=== PATIENT | female | born 1995 | race Caucasian/White ===

== ENCOUNTER 2016-12-27 19:19 | Emergency (ER) | payer OTHER ==
[2016-12-27] MEDS ORDERED: NS 1,000 ML IV ONE ×2 (19:36)
--- NOTE | 2016-12-27 19:36 | EDPHY ---
H & P Stated Complaint: abd pain, N, low back pain Time Seen by Provider: 12/27/16 19:35 HPI/ROS: HPI: This is a 21-year-old female who presents with Chief Complaint: abd pain, N, low back pain Location: Right lower quadrant Quality: Aching pain Duration: 3 days Signs and Symptoms: + low-grade subjective fever, + nausea, no vomiting, no hematemesis, no blood in stool, no abdominal bloating, + diarrhea 1-2 times per day x 2 days, + lower back pain, no urinary symptoms, no indigestion, no chest pain, no shortness of breath Timing: Gradually worsening Severity: 05/14 Context: Patient presents from [facility] for concerns of appendicitis. She reports that she is having right lower quadrant pain over the last 3 days that is dull aching mild in nature and nonradiating accompanied by nausea. She has not eaten in over 24 hours. She has also noted 1-2 loose stools per day for the last 2 days. She has a history of polycystic ovary syndrome but reports this pain feels different. Last menstrual period was 3 weeks ago. She denies any vaginal bleeding/vaginal discharge. Last sexual intercourse was yesterday. Modifying Factors: Has not tried anything for the pain Comment: ROS: see HPI Constitutional: No fever, no chills, no weight loss Eyes: No blurred vision Respiratory: No shortness of breath, no cough Cardiovascular: No chest pain, no palpitations Gastrointestinal: + nausea, no vomiting, + diarrhea, no hematemesis, no blood in stool Genitourinary: No dysuria, no blood in urine Extremities: No myalgias, no edema Neurologic: No weakness, no numbness Skin: No rashes, no petechiae Hematologic: No bruising, no bleeding MEDICAL/SURGICAL/SOCIAL HISTORY: Medical history: Generally healthy. Does not take any regular medications. Surgical history: Denies Social history: Chemistry PhD. CONSTITUTIONAL: Obese white female, awake and alert, no obvious distress HEENT: Atraumatic and normocephalic, PERRL, EOMI. Tympanic membranes clear. Oropharynx clear, no exudate and moist pink mucosa. Airway patent. No lymphadenopathy. No meningismus. Cardiovascular: Normal S1/S2, tachycardia, regular rhythm, without murmur rub or gallop. PULMONARY/CHEST: Symmetrical and nontender. Clear to auscultation bilaterally. Good air movement. No accessory muscle usage. ABDOMEN: Soft, nondistended, right lower quadrant moderate tenderness, + rebound tenderness, + rovsings sign, no Psoas sign, + obturator sign, no rebound , no guarding, no peritoneal signs, no masses or organomegaly. No CVAT. EXTREMITIES: 2/2 pulses, no deformities, no clubbing, no cyanosis or edema. NEUROLOGICAL: no focal neuro deficits. GCS 15. SKIN: Warm and dry, no erythema. no rash. Good capillary refill. Source: Patient Exam Limitations: No limitations - Personal History LMP (Females 10-55): 15-21 Days Ago Current Tetanus/Diphtheria Vaccine: Unsure - Medical/Surgical History Hx Asthma: No Hx Chronic Respiratory Disease: No Hx Diabetes: No Hx Cardiac Disease: No Hx Renal Disease: No Hx Cirrhosis: No Hx Alcoholism: No Hx HIV/AIDS: No Hx Splenectomy or Spleen Trauma: No Other PMH: PMHx: hypothyroid, PCOS, vit B 12 adn Vit D deficiency. PSHx: R hand , bilat bunionectomy, mole removed back L shoulder and L axilla, tonsillectomy - Social History Smoking Status: Never smoked Constitutional: Initial Vital Signs Temperature (C) 37.6 C 12/27/16 19:25 Heart Rate 108 H 12/27/16 19:25 Respiratory Rate 14 12/27/16 19:25 Blood Pressure 137/85 H 12/27/16 19:25 O2 Sat (%) 98 12/27/16 19:25 O2 Delivery Mode Room Air Allergies/Adverse Reactions: No Known Allergies Allergy (Unverified 12/27/16 19:23) Home Medications: Medication Instructions Recorded Dicyclomine 12/27/16 FLUoxetine 12/27/16 Metformin HCl 12/27/16 Ondansetron 12/27/16 Sprintec 28 Day Tablet 12/27/16 Synthroid 12/27/16 Medical Decision Making - Diagnostics Imaging Results: Imaging Impressions Abdomen CT 12/27/16 19:46 Impression: 1. Negative for appendicitis. 2. Diffuse fatty infiltration of the liver. I telephoned results to Dalia Brewster at 2117 hours. ED Course/Re-evaluation: Urinalysis, labs, CT abdomen and pelvis scan, IV fluids, IV medications ordered De Anda score equals 6 2040: Labs reviewed and show mild leukocytosis; ESR and CRP within normal limits. 2120: Called by radiologist who advised CT abdomen and pelvis scan shows no signs of appendicitis/ruptured ovarian cyst/colitis/fibroid uterus/cholecystitis /pancreatitis/obstruction. Urinalysis shows 1+ ketones and trace LE. No flor signs of infection. Patient has an appointment in less than 2 weeks with OBGYN for pelvic exam and Pap smear. Patient has politely refused pelvic exam in the ER. 1025: Reassessed patient; abdomen is soft/nontender. No episodes of diarrhea to obtain stool studies while in the ER or episodes of emesis. Patient passed p.o. trial prior to discharge. Patient politely declined prescription for Zofran as she already has one at home. Differential Diagnosis: Abdominal pain in a female including but not limited to ovarian cyst, pelvic inflammatory disease, ovarian torsion, urinary tract infection, and appendicitis. - Data Points Laboratory Results: Laboratory Results 12/27/16 19:50 12/27/16 19:50 12/27/16 12/27/16 12/27/16 21:40 19:50 19:50 WBC RBC Hgb Hct MCV MCH MCHC RDW Plt Count MPV Neut % (Auto) Lymph % (Auto) [place] % (Auto) Eos % (Auto) Baso % (Auto) Nucleat RBC Rel Count Absolute Neuts (auto) Absolute Lymphs (auto) Absolute Monos (auto) Absolute Eos (auto) Absolute Basos (auto) Absolute Nucleated RBC Immature Gran % Immature Gran # ESR Sodium 136 mEq/L mEq/L (134-144) Potassium 4.4 mEq/L mEq/L (3.5-5.2) Chloride 103 mEq/L mEq/L (97-110) Carbon Dioxide 17 mEq/l L mEq/l (22-31) Anion Gap 16 mEq/L mEq/L (8-16) BUN 13 mg/dL mg/dL (7-23) Creatinine 0.7 mg/dL mg/dL (0.6-1.0) Estimated GFR > 60 Glucose 76 mg/dL mg/dL (70-100) Calcium 9.6 mg/dL mg/dL (8.5-10.4) Total Bilirubin 0.7 mg/dL mg/dL (0.1-1.4) Conjugated Bilirubin 0.5 mg/dL mg/dL (0.0-0.5) Unconjugated Bilirubin 0.2 mg/dL mg/dL (0.0-1.1) AST 42 IU/L IU/L (14-46) ALT 32 IU/L IU/L (9-52) Alkaline Phosphatase 70 IU/L IU/L (38-126) C-Reactive Protein 6.5 mg/L mg/L (<10.0) Total Protein 7.6 g/dL g/dL (6.3-8.2) Albumin 4.5 g/dL g/dL (3.5-5.0) Lipase 87 IU/L IU/L (23-300) Beta HCG, Qual NEGATIVE Specimen Hemolysis 110 Urine Color COLORLESS Urine Appearance CLEAR Urine pH 5.0 (5.0-7.5) Ur Specific [place] 1.033 H (1.002-1.030) Urine Protein NEGATIVE (NEGATIVE) Urine Ketones 1+ H (NEGATIVE) Urine Blood NEGATIVE (NEGATIVE) Urine Nitrate NEGATIVE (NEGATIVE) Urine Bilirubin NEGATIVE (NEGATIVE) Urine Urobilinogen NEGATIVE EU EU (0.2-1.0) Ur Leukocyte Esterase TRACE H (NEGATIVE) Urine RBC 1-3 /hpf /hpf (0-3) Urine WBC 1-3 /hpf /hpf (0-3) Ur Epithelial Cells TRACE /lpf /lpf (NONE-1+) Urine Mucus TRACE /lpf /lpf (NONE-1+) Urine Glucose NEGATIVE (NEGATIVE) 12/27/16 19:50 WBC 10.25 10^3/uL H 10^3/uL (3.80-9.50) RBC 4.52 10^6/uL 10^6/uL (4.18-5.33) Hgb 13.7 g/dL g/dL (12.6-16.3) Hct 38.8 % % (38.0-47.0) MCV 85.8 fL fL (81.5-99.8) MCH 30.3 pg pg (27.9-34.1) MCHC 35.3 g/dL g/dL (32.4-36.7) RDW 12.3 % % (11.5-15.2) Plt Count 304 10^3/uL 10^3/uL (150-400) MPV 10.4 fL fL (8.7-11.7) Neut % (Auto) 54.4 % % (39.3-74.2) Lymph % (Auto) 38.7 % % (15.0-45.0) Dodge % (Auto) 5.6 % % (4.5-13.0) Eos % (Auto) 0.4 % L % (0.6-7.6) Baso % (Auto) 0.6 % % (0.3-1.7) Nucleat RBC Rel Count 0.0 % % (0.0-0.2) Absolute Neuts (auto) 5.58 10^3/uL 10^3/uL (1.70-6.50) Absolute Lymphs (auto) 3.97 10^3/uL H 10^3/uL (1.00-3.00) Absolute Monos (auto) 0.57 10^3/uL 10^3/uL (0.30-0.80) Absolute Eos (auto) 0.04 10^3/uL 10^3/uL (0.03-0.40) Absolute Basos (auto) 0.06 10^3/uL 10^3/uL (0.02-0.10) Absolute Nucleated RBC 0.00 10^3/uL 10^3/uL (0-0.01) Immature Gran % 0.3 % % (0.0-1.1) Immature Gran # 0.03 10^3/uL 10^3/uL (0.00-0.10) ESR 11 MM/HR MM/HR (0-20) Sodium Potassium Chloride Carbon Dioxide Anion Gap BUN Creatinine Estimated GFR Glucose Calcium Total Bilirubin Conjugated Bilirubin Unconjugated Bilirubin AST ALT Alkaline Phosphatase C-Reactive Protein Total Protein Albumin Lipase Beta HCG, Qual Specimen Hemolysis Urine Color Urine Appearance Urine pH Ur Specific [place] Urine Protein Urine Ketones Urine Blood Urine Nitrate Urine Bilirubin Urine Urobilinogen Ur Leukocyte Esterase Urine RBC Urine WBC Ur Epithelial Cells Urine Mucus Urine Glucose Medications Given: Discontinued Medications Sodium Chloride (Ns) 1,000 mls @ 0 mls/hr IV EDNOW ONE; Wide Open PRN Reason: Protocol Stop: 12/27/16 19:37 Last Admin: 12/27/16 20:08 Dose: 1,000 mls Sodium Chloride (Ns) 1,000 mls @ 0 mls/hr IV EDNOW ONE; Wide Open PRN Reason: Protocol Stop: 12/27/16 19:37 Last Admin: 12/27/16 21:08 Dose: 1,000 mls Ondansetron HCl (Zofran) 4 mg IVP EDNOW ONE Stop: 12/27/16 19:47 Last Admin: 12/27/16 20:09 Dose: 4 mg Departure - Departure Disposition: Home, Routine, Self-Care Clinical Impression: Gastroenteritis Condition: Good Instructions: Gastroenteritis (ED) Additional Instructions: Drink plenty of fluids and rest until symptoms resolve. Use Zofran as needed every 4-6 hours for nausea and vomiting. Eat a bland diet for the next 48 hours. Please keep follow-up appointment with OBGYN for pelvic exam and Pap smear. Referrals: ELISA Reis,. [Clinic] - As per Instructions (Keep follow-up appointment as previously scheduled. )
[2016-12-27] MEDS ORDERED: ONDANSETRON 4 MG/2 ML VIAL IVP ONE (19:46)
[2016-12-27 20:08] LABS: % IMMATURE GRANULYOCYTES 0.3 % (0.0-1.1); ABSOLUTE IMMATURE GRANULOCYTES 0.03 10^3/uL (0.00-0.10); ADD DIFF? NO; ADD MORPH? NO; ADD SCAN? NO; ATYPICAL LYMPHOCYTE FLAG 10 (0-99); FRAGMENT RBC FLAG 0 (0-99); HEMATOCRIT 38.8 % (38.0-47.0); HEMOGLOBIN 13.7 g/dL (12.6-16.3); LEFT SHIFT FLG 0 (0-99); LIPEMIA HEMOLYSIS FLAG 90 (0-99); MEAN CELL HEMOGLOBIN 30.3 pg (27.9-34.1); MEAN CELL HEMOGLOBIN CONCENTR. 35.3 g/dL (32.4-36.7); MEAN CELL VOLUME 85.8 fL (81.5-99.8); MEAN PLATELET VOLUME 10.4 fL (8.7-11.7); PLATELET CLUMPS FLAG 50 (0-99); PLATELET COUNT 304 10^3/uL (150-400); RED BLOOD CELL COUNT 4.52 10^6/uL (4.18-5.33); RED CELL DISTRIBUTION WIDTH 12.3 % (11.5-15.2)
[2016-12-27 20:21] LABS: ALANINE AMINOTRANSFERASE 32 IU/L (9-52); ALBUMIN 4.5 g/dL (3.5-5.0); ALKALINE PHOSPHATASE 70 IU/L (38-126); ANION GAP 16 mEq/L (8-16); ASPARTATE AMINOTRANSFERASE 42 IU/L (14-46); BILIRUBIN,TOTAL 0.7 mg/dL (0.1-1.4); BILIRUBIN-CONJUGATED 0.5 mg/dL (0.0-0.5); BILIRUBIN-UNCONJUGATED 0.2 mg/dL (0.0-1.1); CALCIUM 9.6 mg/dL (8.5-10.4); CARBON DIOXIDE 17 mEq/l (22-31); CHLORIDE 103 mEq/L (97-110); CREATININE 0.7 mg/dL (0.6-1.0); GLOMERULAR FILTRATION RATE > 60; GLUCOSE 76 mg/dL (70-100); POTASSIUM 4.4 mEq/L (3.5-5.2); SODIUM 136 mEq/L (134-144); TOTAL PROTEIN 7.6 g/dL (6.3-8.2)
[2016-12-27 20:36] LABS: SEDIMENTATION RATE 11 MM/HR (0-20)
[2016-12-27 20:39] LABS: C-REACTIVE PROTEIN 6.5 mg/L (<10.0); SPECIMEN HEMOLYSIS 110
[2016-12-27] MEDS ORDERED: IOPAMIDOL (ISOVUE-300) 100 ML BTL ONE (20:43)
[2016-12-27 21:50] LABS: COLOR COLORLESS; LEUKOCYTE ESTERASE,URINE TRACE (NEGATIVE); NITRITE,URINE NEGATIVE (NEGATIVE)
[2016-12-27 21:55] LABS: MUCUS TRACE /lpf (NONE-1+)
[2016-12-27 22:38] VITALS: BP 121/68; PULSE 86; RESP 20; TEMP 98.4; O2SAT 96
== END 2016-12-27 22:38 | disposition home or self-care (01) ==
PROC: 3E0337Z Introduction of Electrolytic and Water Balance Substance into Peripheral Vein, Percutaneous Approach (ICD-10-PCS; principal; 2016-12-27)
DX: K52.9 Noninfective gastroenteritis and colitis, unspecified (principal); E86.9 Volume depletion, unspecified
CPT/HCPCS: 96374; J2405; Q9967

== ENCOUNTER 2017-01-18 12:57 | Emergency (ER) | payer OTHER ==
--- NOTE | 2017-01-18 14:05 | EDPHY ---
H & P Stated Complaint: seen 3 wks ago for r abd pain/r flank pain/intermittent since then/worse to Time Seen by Provider: 01/18/17 13:14 HPI/ROS: CHIEF COMPLAINT: Abdominal pain HISTORY OF PRESENT ILLNESS: This is a 21-year-old female who was referred by [facility] today because of ongoing abdominal pain. She has been in the process of an evaluation of this pain. It began over a month ago with mild nausea that then progressed to a constant dull pain in the right lower quadrant. She was evaluated at that time at [facility] and referred to the emergency department to rule out appendicitis. Her evaluation at that time was negative for appendicitis. She had a CT scan done along with laboratory studies. The CT scan showed a ptotic right kidney. She was seen by Gastroenterology 1 week ago and had an endoscopy and colonoscopy performed. The results of these studies are not yet fully available. After the procedure she was told that she had signs of chronic gastritis. She was not started on any new medications. Biopsies and other results are pending at this time. She presented today to the [facility] because of a change in her abdominal pain. 2 days ago she developed pain in her back followed by generalized abdominal pain yesterday. The dull aching pain in her right lower quadrant has worsened. She now reports right low back pain, right upper quadrant pain and right lower quadrant pain. It continues to be a dull aching sensation. She reports a mass that she can palpate above her right hip. This is a tender area. She denies dysuria, hematuria, urgency or frequency. She has not had fever. She has persistent nausea but has not had vomiting. She denies diarrhea. Her appetite is poor. She took 1 tramadol, 50 mg, last night with some pain relief. She does not take this often because it interferes with her ability to work. REVIEW OF SYSTEMS: A ten point review of systems was performed and is negative with the exception of the items mentioned in the HPI. Past medical history: 1. PCOS 2. Hypothyroidism Past surgical history: 1. Tonsillectomy 2. Bunionectomy 3. 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 She is accompanied by her boyfriend today. General Appearance: Alert. Vital signs reviewed. Blood pressure at triage was 142/113. She is afebrile. Heart rate normal. Eyes: Pupils equal and round, no conjunctival injection, no discharge. Anicteric. ENT, Mouth: Mucous membranes are moist, no oropharyngeal erythema or edema. Neck: No lymphadenopathy, supple. Respiratory: Lungs are clear to auscultation; no wheezes, rales, or rhonchi. Cardiovascular: Regular rate and rhythm; no murmur, rub, or gallop. Gastrointestinal: Abdomen is obese, soft and moderately tender in the right upper and right lower quadrant, no guarding, no masses or organomegaly, bowel sounds normal. Skin: Warm and dry, no rashes on exposed skin, normal color. Back: Nontender to palpation over the thoracolumbar spine. No CVAT. No palpable right flank mass. Extremities: No lower extremity edema, no calf tenderness or swelling. Neurological: Alert and oriented. Moving all four extremities easily and equally. Psychiatric: Normal affect. - Personal History LMP (Females 10-55): 15-21 Days Ago Current Tetanus/Diphtheria Vaccine: Unsure - Medical/Surgical History Hx Asthma: No Hx Chronic Respiratory Disease: No Hx Diabetes: No Hx Cardiac Disease: No Hx Renal Disease: No Hx Cirrhosis: No Hx Alcoholism: No Hx HIV/AIDS: No Hx Splenectomy or Spleen Trauma: No Other PMH: PMHx: hypothyroid, PCOS, vit B 12 adn Vit D deficiency. PSHx: R hand , bilat bunionectomy, mole removed back L shoulder and L axilla, tonsillectomy - Social History Smoking Status: Never smoked Constitutional: Initial Vital Signs Temperature (C) 37.2 C 01/18/17 13:00 Heart Rate 92 01/18/17 13:00 Respiratory Rate 17 01/18/17 13:00 Blood Pressure 142/113 H 01/18/17 13:00 O2 Sat (%) 96 01/18/17 13:00 O2 Delivery Mode Room Air Allergies/Adverse Reactions: No Known Allergies Allergy (Verified 01/18/17 12:59) Home Medications: Medication Instructions Recorded Dicyclomine 12/27/16 FLUoxetine 12/27/16 Metformin HCl 12/27/16 Ondansetron 12/27/16 Sprintec 28 Day Tablet 12/27/16 Synthroid 12/27/16 Medical Decision Making ED Course/Re-evaluation: I reviewed the laboratory work that the patient brings with her. She had blood work done today through the [facility]. This includes a CBC, chemistries, liver functions, and urinalysis. Blood work in are normal. Because of her recent colonoscopy I am repeating the abdominal CT scan. Abdominal CT scan does not show any evidence of perforated viscus or other abnormality that would account for her pain. Her right kidney does not appear ptotic on this study. She does not have an acute abdomen and I do not suspect a surgical problem. At this point, I do not know what more can be done in the emergency department to figure out what has been causing her abdominal pain. I am recommending continued follow-up with the director of special services. We reviewed the danger signs that should prompt her to return. Differential Diagnosis: Abdominal pain including but not limited to appendicitis, cholecystitis, gastritis, perforated viscus, ovarian pathology, ureterolithiasis, malignancy, and urinary tract infection. - Data Points Medications Given: Discontinued Medications Hydromorphone HCl (Dilaudid) 0.5 mg IVP EDNOW ONE Stop: 01/18/17 14:07 Last Admin: 01/18/17 14:38 Dose: 0.5 mg Sodium Chloride (Ns) 1,000 mls @ 0 mls/hr IV EDNOW ONE; Wide Open PRN Reason: Protocol Stop: 01/18/17 14:07 Last Admin: 01/18/17 14:25 Dose: 1,000 mls Ondansetron HCl (Zofran) 4 mg IVP EDNOW ONE Stop: 01/18/17 14:07 Last Admin: 01/18/17 14:38 Dose: 4 mg Departure - Departure Disposition: Home, Routine, Self-Care Clinical Impression: Abdominal pain Qualifiers: Abdominal location: generalized Qualified Code(s): R10.84 - Generalized abdominal pain Condition: Good Instructions: Abdominal Pain (ED) Referrals: DEVONTE SILVA [Other] - As per Instructions
[2017-01-18] MEDS ORDERED: NS 1,000 ML IV ONE (14:06)
[2017-01-18] MEDS ORDERED: HYDROmorphONE/DILAUDID 1 MG/ML INJ IVP ONE (14:06)
[2017-01-18] MEDS ORDERED: ONDANSETRON 4 MG/2 ML VIAL IVP ONE (14:06)
[2017-01-18 17:00] VITALS: BP 129/86; PULSE 86; RESP 16; TEMP 98.2; O2SAT 97
== END 2017-01-18 17:00 | disposition home or self-care (01) ==
DX: R10.84 Generalized abdominal pain (principal); E86.9 Volume depletion, unspecified
CPT/HCPCS: 96374; J1170; J2405